=== PATIENT | male | born 1980 | race African-American/Black ===

== ENCOUNTER 2020-02-14 20:37 | Emergency (ER) | payer OTHER ==
[2020-02-14 20:42] VITALS: BP 150/90; PULSE 100; RESP 20; TEMP 99.1
[2020-02-14] MEDS ORDERED: LIDOCAINE 1% INJ 10MG/ML (20 ML MDV) SQ ONE (20:51)
[2020-02-14] MEDS ORDERED: BUPIVACAINE (PF) 0.75% 10 ML VIAL SQ STA (20:56)
--- NOTE | 2020-02-14 20:56 | ED ---
General Adult HPI - General Chief complaint: Dental/Oral Stated complaint: Dental Pain Time Seen by Provider: 02/14/20 20:45 Source: patient Mode of arrival: ambulatory Limitations: no limitations - History of Present Illness Initial comments: Dictation was produced using [employer] dictation software. please excuse any grammatical, word or spelling errors. This patient was cared for during a federal and state declared state of emergency secondary to Covid 19 Chief Complaint: 39-year-old male presents with dental pain History of Present Illness: 39-year-old she presents today with dental pain. Patient does not go to his dentist regularly. Patient states for the last 3-4 days he's been having worsening right mandibular dental pain. Denies any fever, chills or night sweats. The ROS documented in this emergency department record has been reviewed and confirmed by me. Those systems with pertinent positive or negative responses have been documented in the HPI. All other systems are other negative and/or noncontributory. PHYSICAL EXAM: General Impression: Alert and oriented x3, not in acute distress HEENT: Normocephalic atraumatic, extra-ocular movements intact, pupils equal and reactive to light bilaterally, mucous membranes moist. Oral exam: Poor dentition missing right lower mandibular molar tooth, gingival abscess noted at the gingival margin, no submental tenderness. Cardiovascular: Heart regular rate and rhythm Chest: Able to complete full sentences, no retractions, no tachypnea Abdomen: abdomen soft, non-tender, non-distended, no organomegaly Musculoskeletal: Pulses present and equal in all extremities, no peripheral edema Motor: no focal deficits noted Neurological: CN II-XII grossly intact, no focal motor or sensory deficits noted Skin: Intact with no visualized rashes Psych: Normal affect and mood ED course: 39-year-old male presents with chief complaint dental pain. Patient has gingival abscess on physical examination. Vital signs upon arrival are within acceptable limits. Periosteal dental block was performed and due to aspiration was performed on the gingival abscess. - Related Data Previous Rx's Medication Instructions Recorded Amoxic-Pot Clav 875-125Mg 1 tab PO BID 10 Days #20 tab 02/14/20 [Augmentin 875-125] HYDROcodone/APAP 5-325MG [[place] 1 tab PO Q6HR PRN 3 Days #12 tab 02/14/20 5-325] Allergies Allergy/AdvReac Type Severity Reaction Status Date / Time No Known Allergies Allergy Verified 02/14/20 20:42 Review of Systems ROS Statement: Those systems with pertinent positive or pertinent negative responses have been documented in the HPI. ROS Other: All systems not noted in ROS Statement are negative. Past Medical History Past Medical History: Diabetes Mellitus History of Any Multi-Drug Resistant Organisms: None Reported Past Surgical History: No Surgical Hx Reported Past Psychological History: No Psychological Hx Reported Smoking Status: Current some day smoker Past Alcohol Use History: Occasional Past Drug Use History: None Reported General Exam Limitations: no limitations Course Vital Signs 02/14/20 20:39 Temperature 99.1 F Pulse Rate 100 Respiratory 20 Rate Blood Pressure 150/90 O2 Sat by Pulse 99 Oximetry Procedures - Incision & Drainage Consent Obtained: verbal consent Site: oral (gingival abscess) Anesthetic Used: lidocaine 1% Scalpel Used: #11 Needle Aspiration Performed?: Yes Irrigation Performed?: No I&D Drainage Obtained: Pus Culture Obtained?: No Patient Tolerated Procedure: well Disposition Clinical Impression: Gingival abscess Disposition: HOME SELF-CARE Instructions (If sedation given, give patient instructions): Dental Abscess (ED) Additional Instructions: Please follow up with dentist as soon as possible. Today you had drainage of a gum abscess. This is the result of dental infection. Please take antibiotics as prescribed. Your provided with a prescription for pain medicine. Please take only as needed. Prescriptions: Amoxic-Pot Clav 875-125Mg [Augmentin 875-125] 1 tab PO BID 10 Days #20 tab HYDROcodone/APAP 5-325MG [[place] 5-325] 1 tab PO Q6HR PRN 3 Days #12 tab PRN Reason: Severe Pain Is patient prescribed a controlled substance at d/c from ED?: Yes If prescribed controlled substance>3 days was MAPS reviewed?: Prescribed <3 Days Referrals: None,Stated [Primary Care Provider] - 1-2 days Time of Disposition: 21:14
== END 2020-02-14 21:31 | disposition home or self-care (01) ==
LOC: EC 20:37
DX: K05.319 Chronic periodontitis, localized, unspecified severity (principal); F17.200 Nicotine dependence, unspecified, uncomplicated
CPT/HCPCS: 41800; 99282; J2001